=== PATIENT | female | born 1960 | race Caucasian/White ===

== ENCOUNTER 2017-01-01 11:49 | Observation (INO) ==
[2017-01-01] MEDS ORDERED: KETOROLAC 30 MG/1 ML VIAL IV STA (12:16)
[2017-01-01] MEDS ORDERED: cefTRIAXone 1,000 MG in SODIUM CHLORIDE 0.9% 100 ML IV STA (12:16)
[2017-01-01] MEDS ORDERED: DIPH/TET/ACEL PERT BOOSTER VACCINE 0.5 ML VIAL IM ONE ×2 (12:16→13:13)
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
[2017-01-01 12:54] LABS: Basophils # 0.1 10*3/uL (0.0-0.2); Basophils % 0.6 % (0.0-0.8); Eosinophils # 0.2 10*3/uL (0.0-0.87); Eosinophils % 2.1 % (0.00-10.9); Hematocrit 37.6 VOL% (35.7-47.0); Hemoglobin 12.5 GM/DL (12.0-16.0); Immature Granulocytes % 0.3 %; Immature Granulocytes Absolute 0.03 #; Lymphocytes # 1.2 10*3/uL (1.4-4.0); Lymphocytes % 14.2 % (21.3-54.2); Mean Corpuscular HGB Conc 33.2 GM/DL (32-36); Mean Corpuscular Hemoglobin 32 PG (27-34); Mean Corpuscular Volume 96.2 FL (87-102); Mean Platelet Volume 10.7 FL (9.6-12.0); Monocytes # 0.4 10*3/uL (0.11-0.8); Monocytes % 4.6 % (1.7-12.7); Neutrophils # 6.9 10*3/uL (1.4-7.4); Neutrophils % 78.2 % (38.7-73.9); Platelet Count 146 T/CUMM (130-400); Red Blood Count 3.91 MC/CUMM (3.8-5.5); Red Cell Distribution Width 14.6 % (9.3-17.3); White Blood Count 8.8 T/CUMM (4-12)
--- NOTE | 2017-01-01 12:57 | EKG Report ---
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
[2017-01-01 13:13] LABS: PT Patient Result 10.4 SECS; Partial Thromboplastin Time 24.7 SECS (0-40)
[2017-01-01] MEDS ORDERED: KETOROLAC 30 MG/1 ML VIAL ONE (13:13)
[2017-01-01] MEDS ORDERED: cefTRIAXone 1,000 MG VIAL ONE (13:13)
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
[2017-01-01 13:34] LABS: Alanine Aminotransferase 18 U/L (13-56); Albumin 3.3 G/DL (3.4-5.0); Alkaline Phosphatase 64 U/L (45-117); Aspartate Amino Transferase 29 U/L (0-37); Bilirubin,Total < 0.39 MG/DL (0.2-1.0); Blood Urea Nitrogen 14 MG/DL (7-18); Calcium 8.1 MG/DL (8.5-10.1); Glucose 170 MG/DL (74-106); Osmolality,Calculated 287.1 MOS/KG (273-304); Potassium 3.9 MMOL/L (3.5-5.1); Sodium 142 MMOL/L (136-145); Total Protein 6.8 G/DL (6.4-8.3)
[2017-01-01 13:35] LABS: Troponin I Only < 0.015 NG/ML (0.00-0.045)
[2017-01-01] MEDS ORDERED: ONDANSETRON 4 MG/2 ML VIAL IV STA (13:47)
[2017-01-01] MEDS ORDERED: HYDROmorphone 2 MG/1 ML VIAL IV STA (13:47)
[2017-01-01] MEDS ORDERED: ONDANSETRON 4 MG/2 ML VIAL ONE (13:48)
[2017-01-01] MEDS ORDERED: HYDROmorphone 2 MG/1 ML VIAL ONE (13:49)
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
[2017-01-01] MEDS ORDERED: LIDOCAINE 1%/EPI INJ 20 ML VIAL ONE (14:09)
[2017-01-01] MEDS ORDERED: BACITRACIN OINT 0.9 GM PACK TOP ONE (15:17)
[2017-01-01] MEDS ORDERED: BACITRACIN/POLYMYXIN OINT 14.17 GM TUBE TOP ONE (15:19)
[2017-01-01] MEDS ORDERED: ACETAMINOPHEN 325 MG TABLET PO PRN (15:47)
[2017-01-01] MEDS ORDERED: ONDANSETRON 4 MG/2 ML VIAL IV PRN (15:47)
[2017-01-01] MEDS ORDERED: MORPHINE 2 MG/1 ML SYRINGE IV PRN (15:47)
--- NOTE | 2017-01-01 15:47 | Operative Note ---
Date of procedure: 01/01/17 Pre-op diagnosis: Scalp laceration Post-op diagnosis: same Procedure: Procedure performed: Repair of 16 cm scalp laceration/avulsion Procedure in detail: After informed consent was obtained patient was taken operating suite and laid supine on the operating table. After general anesthesia was induced the forehead and top of the scalp were prepped and draped in usual sterile fashion. After procedural pause the wound was examined and irrigated thoroughly and suctioned. There were several small cutaneous blood vessels bleeding that were cauterized. As I examine the wound the lower flap had avulsed off of the skull all the way down to about the eyebrow level bilaterally. There was no bleeding in this area. This was thoroughly irrigated and suctioned. I was able to reapproximate the edges with 2-0 nylon interrupted suture without any tension. Sterile dressings were applied. There was good hemostasis throughout the procedure and the patient tolerated it well. She was extubated and taken recovery room in stable condition. All lap needle counts were correct at the end of the case. Anesthesia: GETA Surgeon / Physician: Dave Weiner Estimated blood loss: other (Less than 25 cc) Specimens: none sent Condition: stable Disposition: PACU Results - Labs CBC & BMP: 01/01/17 12:46 01/01/17 12:46 Discharge Plan - Discharge Data Disposition: Still a Patient - Discharge Medications No Action No Known Home Medications [No Known Home Medications] - Follow Up or Referral - Forms/Instructions
[2017-01-01] MEDS ORDERED: MIDAZOLAM 2 MG/2 ML VIAL ONE (17:24)
[2017-01-01] MEDS ORDERED: fentaNYL 100 MCG/2 ML VIAL ONE (17:24)
[2017-01-01] MEDS ORDERED: ROCURONIUM 100 MG/10 ML VIAL IV ONE (17:24)
[2017-01-01] MEDS ORDERED: PROPOFOL 200 MG/20 ML VIAL IV ONE (17:24)
[2017-01-01] MEDS ORDERED: SUCCINYLCHOLINE 200 MG/10 ML VIAL ONE (17:24)
[2017-01-01 20:31] LABS: Basophils # 0.1 10*3/uL (0.0-0.2); Basophils % 0.6 % (0.0-0.8); Eosinophils # 0.2 10*3/uL (0.0-0.87); Eosinophils % 1.9 % (0.00-10.9); Hematocrit 33.4 VOL% (35.7-47.0); Hemoglobin 11.1 GM/DL (12.0-16.0); Immature Granulocytes % 0.2 %; Immature Granulocytes Absolute 0.02 #; Lymphocytes # 2.2 10*3/uL (1.4-4.0); Mean Corpuscular HGB Conc 33.2 GM/DL (32-36); Mean Corpuscular Hemoglobin 32 PG (27-34); Mean Corpuscular Volume 95.7 FL (87-102); Monocytes # 0.8 10*3/uL (0.11-0.8); Monocytes % 9.3 % (1.7-12.7); Neutrophils # 5.6 10*3/uL (1.4-7.4); Platelet Count 140 T/CUMM (130-400); Red Blood Count 3.49 MC/CUMM (3.8-5.5); Red Cell Distribution Width 14.6 % (9.3-17.3); White Blood Count 8.9 T/CUMM (4-12)
--- NOTE | 2017-01-01 23:58 | Anesthesia Post-Op ---
Anesthesia Post OP - Post Ansesthetic Evaluation Patient seen in post op: Yes Resp: within normal limits CV: within normal limits Mental: within normal limits Temp: within normal limits [id number]: within normal limits Nausea and Vomiting: within normal limits Pain: within normal limits
[2017-01-02 04:32] LABS: Basophils # 0.1 10*3/uL (0.0-0.2); Basophils % 0.8 % (0.0-0.8); Eosinophils # 0.2 10*3/uL (0.0-0.87); Hematocrit 31.2 VOL% (35.7-47.0); Hemoglobin 10.3 GM/DL (12.0-16.0); Immature Granulocytes % 0.3 %; Immature Granulocytes Absolute 0.02 #; Lymphocytes # 2.1 10*3/uL (1.4-4.0); Lymphocytes % 26.8 % (21.3-54.2); Mean Corpuscular Hemoglobin 32 PG (27-34); Mean Corpuscular Volume 96.3 FL (87-102); Mean Platelet Volume 11.2 FL (9.6-12.0); Monocytes # 0.7 10*3/uL (0.11-0.8); Monocytes % 8.7 % (1.7-12.7); Neutrophils # 4.6 10*3/uL (1.4-7.4); Neutrophils % 60.4 % (38.7-73.9); Platelet Count 116 T/CUMM (130-400); Red Blood Count 3.24 MC/CUMM (3.8-5.5); Red Cell Distribution Width 14.6 % (9.3-17.3); White Blood Count 7.7 T/CUMM (4-12)
[2017-01-02] MEDS ORDERED: PANTOPRAZOLE 40 MG TABLET PO SCH (09:00)
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
--- NOTE | 2017-01-02 13:17 | Discharge Summary ---
Hospital Course - Hospital Course Hospital Course: Patient is doing well today. She underwent repair of her scalp laceration in the operating room yesterday. She has been tolerating a diet. Her vital signs have been stable. She has been afebrile. She has no evidence of any active bleeding. Ophthalmology is seen the patient. The call coverage for Dr. Rae was notified and recommended that the patient follow-up with Dr. Rae in 5-9 days. She has been ambulating and her pain is well controlled. She is unable to wrinkle her forehead but this is expected. She wants to go home. Incision looks good. I will see her in 2 weeks for suture removal. She is instructed to follow-up with Dr. Rae in 1 week. She has no vision changes. Nursing staff will contact Dr. Ferrer regarding follow-up with him. She is instructed to call or return to the emergency room for any nausea vomiting worsening pain, headache, shortness of breath, chest pain, fever, visual changes or any other concern. Diagnosis - Discharge Diagnosis (1) Scalp laceration Status: Acute Discharge Plan - Discharge Medications New HYDROcodone/ACETAMIN 7.5-325 [[place] 7.5-325] 1 tablet PO Q4H PRN #40 tablet PRN Reason: Pain Moderate (4-7) - Follow Up or Referral - Forms/Instructions Exam - Constitutional Vitals: Period Temp Pulse Resp BP Sys/Rodríguez Pulse Ox Last 24 Hr 97.0 F-98.8 F 70-108 16-20 93-131/49-91 95-99 Discharge Results Labs on day of discharge: Labs from last 24 hours 01/02/17 01/01/17 01/01/17 03:04 20:01 12:46 WBC 7.7 8.9 RBC 3.24 L 3.49 L Hgb 10.3 L 11.1 L Hct 31.2 L 33.4 L MCV 96.3 95.7 MCH 32 32 MCHC 33.0 33.2 RDW 14.6 14.6 Plt Count 116 L 140 MPV 11.2 11.0 Neut % (Auto) 60.4 63.0 Lymph % (Auto) 26.8 25.0 [place] % (Auto) 8.7 9.3 Eos % (Auto) 3.0 1.9 Baso % (Auto) 0.8 0.6 Neut # (Auto) 4.6 5.6 Lymph # (Auto) 2.1 2.2 [place] # (Auto) 0.7 0.8 Eos # (Auto) 0.2 0.2 Baso # (Auto) 0.1 0.1 Immature Gran % 0.3 0.2 Nucleated RBC % 0.0 0.0 Immature Gran # 0.02 0.02 Nucleated RBCs # 0.00 0.00 Immature Plt Fraction 0.0 0.0 INR PT Patient/Control Mix Circ Anticoag PTT Sodium Potassium Chloride Carbon Dioxide Anion Gap BUN Creatinine GFR Calculation BUN/Creatinine Ratio Glucose Calculated Osmolality Calcium Total Bilirubin AST ALT Alkaline Phosphatase Total Creatine Kinase 110 CK-MB (CK-2) 1.6 Troponin I < 0.015 Total Protein Albumin Globulin Albumin/Globulin Ratio 01/01/17 01/01/17 12:46 12:46 WBC RBC Hgb Hct MCV MCH MCHC RDW Plt Count MPV Neut % (Auto) Lymph % (Auto) [place] % (Auto) Eos % (Auto) Baso % (Auto) Neut # (Auto) Lymph # (Auto) [place] # (Auto) Eos # (Auto) Baso # (Auto) Immature Gran % Nucleated RBC % Immature Gran # Nucleated RBCs # Immature Plt Fraction INR 1.0 PT Patient/Control Mix 10.4 Circ Anticoag PTT 24.7 Sodium 142 Potassium 3.9 Chloride 112 H Carbon Dioxide 24 Anion Gap 9.9 BUN 14 Creatinine 0.80 GFR Calculation 77 BUN/Creatinine Ratio 17.00 Glucose 170 H Calculated Osmolality 287.1 Calcium 8.1 L Total Bilirubin < 0.39 AST 29 ALT 18 Alkaline Phosphatase 64 Total Creatine Kinase CK-MB (CK-2) Troponin I Total Protein 6.8 Albumin 3.3 L Globulin 3.5 Albumin/Globulin Ratio 0.9 L DS: Provider Date of admission: 01/01/17 15:47 Primary care physician: Nonstaff Physician Attending physician on admission: Dave Weiner MD Consults: 01/01/17 15:50 Consult to Physician [CONS] Routine Comment: Consulting Provider: Floyd Ferrer Consulting Provider Notified: Yes When should Consulting Provider be notified: Now Person Notified: Dr. Ferrer Date Notified: 01/02/17 Time Notified: 08:33 Discharging clinician: Dave Weiner MD
[2017-01-02 16:17] VITALS: BP 107/69
== END 2017-01-02 16:15 | disposition home or self-care (01) ==
LOC: N.EDINP 11:49 → N.ED 11:49 → N.3E 14:22
PROVIDERS: ADMIT Surgery; ATTEND Surgery